=== PATIENT | female | born 1960 | race Caucasian/White ===

== ENCOUNTER 2020-10-28 15:38 | Inpatient (IN) | payer MEDICARE, OTHER ==
[~2020-10-28] VITALS: Ht 154.9 cm; Wt 58.1 kg
--- NOTE | 2020-10-28 15:50 | NUR ---
OCCUPATIONAL HYGIENIST NOTE- PT ADMITTED 5150 DTO DTS GD BROUGHT IN BY AMBULANCE FROM ANOTHER HOSPITAL. PT WAS AT FACILITY AND BEGAN STRIKING OUT AT ROOM MATE AND STAFF STATING "THEY'RE STEALING MY STUFF",. ON FACE TO FACE ASSESSMENT, SHE IS FOUND TO BE ALERT ORIENTED PERSON PLACE PURPOSE THOUGH HAS LOOSE ASSOCIATIONS AND PARANOIA. PT SKIN CHECK COMPLETED, AND MRSA SWAB DONE. PHOTOS TAKEN FOR CHART. PT IS ALLERGIC TO TORADOL. PMHX- BRAIN ANEURYSM AT AGE 18 LEFT HER WITH CONTRACTURES LEFT SIDE AND WEAKNESS. PT CAN FEED SELF AND MOVE AROUND BUT MOBILITY RESTRICTED. SHE HAS DEPRESSION , CHRONIC BACK PAIN AND A UTI. HER TOX SCREEN WAS + CANNIBIS. VS- BP- 125/89. HR- 70. RR- 18. T- 97.8 SATS AT 100% RA. DR MARTIN NOTIFIED OF ADMIT, PT SCREAMED AT HIM AND WAS NOT DIRECTABLE. RX ORDERED. ORDERS COMPLIED WITH. ORIENTED TO UNIT.
[2020-10-28 16:00] VITALS: BP 151/79
[2020-10-28] MEDS ORDERED: ONDA-97 PO (16:09)
[2020-10-28] MEDS ORDERED: ACET325T53 PO (16:09)
[2020-10-28] MEDS ORDERED: LEVO50TA8 PO (16:09)
[2020-10-28] MEDS ORDERED: GABA-532 PO (16:09)
[2020-10-28] MEDS ORDERED: LIDOCAINE PATCH TD (16:09)
[2020-10-28] MEDS ORDERED: CALC-952 PO (16:09)
[2020-10-28] MEDS ORDERED: NITR100C6 PO (16:09)
[2020-10-28] MEDS ORDERED: OXCA300T15 PO (16:09)
[2020-10-28] MEDS ORDERED: DICL20GE TP (16:09)
[2020-10-28] MEDS ORDERED: DULO60CA45 PO (16:09)
[2020-10-28] MEDS ORDERED: OMEP40CA13 PO (16:09)
[2020-10-28] MEDS ORDERED: ATOR10TA PO (16:09)
[2020-10-28] MEDS ORDERED: ACETAMINOPHEN 325 MG TABLET PO PRN (16:30)
[2020-10-28] MEDS ORDERED: MAG HYDROX/AL HYDROX/SIMETH 30 ML UDC PO PRN (16:30)
[2020-10-28] MEDS ORDERED: MAGNESIUM HYDROXIDE 30 ML UDC PO PRN (16:30)
[2020-10-28] MEDS ORDERED: BLOOD SUGAR DIAGNOSTIC 1 EACH STRIP IN ONE (16:30)
[2020-10-28] MEDS ORDERED: diphenhydrAMINE HCL 50 MG/ML VIAL IM STA (17:03)
[2020-10-28] MEDS ORDERED: LORAZEPAM INJ 2 MG/ML VIAL IM STA (17:03)
[2020-10-28] MEDS ORDERED: HALOPERIDOL LACTATE INJ 5 MG/ML VIAL IM STA (17:03)
--- NOTE | 2020-10-28 17:06 | NUR ---
RN NOTE- PT SCREAMING NOT DIRECTABLE OPPOSITIONAL TO ALL CARE. DR MARTIN ORDERED HALDOL 5 MG ATIVAN 2 MG AND BENADRYL 50 MG IM STAT. COMPLIED W ORDERS AND STAFF ASSIST.
[2020-10-28] MEDS ORDERED: OXCARBAZEPINE 300 MG PO SCH (17:30)
[2020-10-28] MEDS ORDERED: Medication Not On Formulary EA (Duloxetine Hcl (Cymbalta) 60 MG) PO SCH (17:30)
[2020-10-28] MEDS ORDERED: ZIPRASIDONE 20 MG CAPSULE PO SCH (17:30)
[2020-10-28 20:10] VITALS: BP 121/63
[2020-10-29] MEDS: LEVOTHYROXINE SODIUM 50 MCG TABLET PO SCH (06:28)
--- NOTE | 2020-10-29 06:45 | NUR ---
GPS RN CLOSING NOTES: PATIENT IS CURRENTLY SLEEPING. SLEPT 9HRS THIS SHIFT. PATIENT WAS MED COMPLIANT THIS SHIFT. NO S/S OF DISTRESS. RESPIRATION EVEN AND UNLABORED WITH EQUAL RISE AND FALL OF THE CHEST, ON ROOM AIR. ALL PATIENT CARE NEEDS MET ANTICIPATED. BED IN LOWEST POSITION AND LOCKED WITH SIDE RAILS UP X2. WILL CONTINUE TO MONITOR FOR SAFETY, MOOD AND BEHAVIOR AND ENDORSE TO AM SHIFT.
--- NOTE | 2020-10-29 07:00 | NUR ---
RN OPENING NOTES RECEIVED PATIENT IN BED SLEEPING COMFORTABLY.EASY TO AROUSE. BREATHING AND RESPIRATION EVEN AND UNLABORED WITH EQUAL RISE AND FALL OF THE CHEST, STABLE ON ROOM AIR. NO S/S OF ANY ACUTE DISTRESS. BED IN LOWEST LOCKED POSITION, SIDE RAILS UP X2, CALL LIGHT AND TABLE WITHIN REACH. WILL. CONTINUE TO MONITOR Q15 MIN FOR SAFETY, MOOD AND BEHAVIOR.
[2020-10-29 07:32] LABS: ALBUMIN 3.5 g/dL (3.4-5.0); BILIRUBIN,TOTAL 0.2 mg/dL (0.2-1.0); CALCIUM, SERUM 10.1 mg/dL (8.5-10.1); CREATININE 1.1 mg/dL (0.6-1.3); POTASSIUM 4.4 mmol/L (3.5-5.1); TOTAL PROTEIN, SERUM 6.9 g/dL (6.4-8.2)
[2020-10-29 07:38] LABS: CHOLESTEROL 162 mg/dL (<200); HDL CHOLESTEROL 58 mg/dL (40-60); LDL 80 mg/dL (0-99); TRIGLYCERIDES 136 mg/dL (30-150)
[2020-10-29 08:00] VITALS: BP 97/54
[2020-10-29] MEDS: PANTOPRAZOLE 40 MG TABLET.DR PO SCH (08:53)
[2020-10-29] MEDS: CALCIUM CARB 600MG /VIT D 1 EACH TABLET PO SCH (08:53)
[2020-10-29] MEDS: LIDOCAINE 5% (PATCH) 1 EA PATCH TP SCH (08:55)
[2020-10-29] MEDS ORDERED: GABAPENTIN 100 MG CAPSULE PO SCH (09:00)
[2020-10-29] MEDS ORDERED: DICLOFENAC TOPICAL 100 GM GEL..GM. TP SCH (09:00)
--- NOTE | 2020-10-29 09:50 | NUR ---
VOLTAREN NON-ADMINISTERED DUE TO IT NOT BEING AVAILABLE PER PHARMACY. RYLEY, PHARMACIST REQUESTED TO HAVE MD, SUBSTITUTE MED. DR FERNANDEZ, LULA MADE AWARE. WILL CONTINUE WITH PLAN OF CARE
[2020-10-29] MEDS: NITROFURANTOIN/NITROFURAN MONOHYDRATE 100 MG CAPSULE PO SCH ×2 (09:54→16:43)
[2020-10-29] MEDS: clonazePAM 0.5 MG TABLET PO PRN ×2 (11:03→21:58)
--- NOTE | 2020-10-29 11:11 | NUR ---
PT IS HAVING ANXIETY, VS BP 156/92, HR 81, RR 18, T 98.0, SPO2 95%. KLONOPIN 0.5MG PO Q4H PRN FOR ANXIETY ADMINISTERED AT THIS TIME PER ORDER. WILL CONTINUE TO MONITOR
--- NOTE | 2020-10-29 12:14 | NUR ---
MARIIA CHANGED TO ESTEPHANIA TODD BY DR FERNANDEZ, DNP AT THIS TIME. RECEIVED ORDERS TO STOP VOLTAREN, ORDERS READ BACK AND CARRIED OUT. WILL CONTINUE WITH PLAN OF CARE
[2020-10-29] MEDS ORDERED: METHYL SALICYLATE/MENTHOL 28GM 28 GM TUBE TP PRN (12:30)
[2020-10-29] MEDS: DULOXETINE HCL 30 MG CAPSULE.DR PO SCH (15:47)
[2020-10-29] MEDS: ZIPRASIDONE 20 MG CAPSULE PO SCH ×2 (15:47→16:42)
[2020-10-29 16:00] VITALS: BP 123/84
[2020-10-29] MEDS: OXCARBAZEPINE 150 MG TABLET PO SCH (16:42)
--- NOTE | 2020-10-29 18:34 | NUR ---
RN CLOSING NOTES PT AWAKE IN CHAIR IN HALLWAY AT THIS TIME. PT REMAINED STABLE THROUGHOUT SHIFT. ALL CARE, NEEDS, MEDICATION AND TREATMENT ADMINISTERED ANTICIPATED PER ORDER. PT DENIES SI/HI, VISUAL OR AUDITORY HALLUCINATION. PT KEPT CLEAN AND DRY. SAFETY PRECAUTIONS IN PLACE AND MAINTAINED AT ALL TIMES. BED IN LOWEST LOCKED POSITION, HOB ELEVATED, SIDE RAILS UPX2, CALL LIGHT AND TABLE WITHIN REACH. WILL ENDORSE TO TOP FRAME MAKER NURSE FOR RADHA
[2020-10-29 20:02] VITALS: BP 115/67
[2020-10-29 20:31] VITALS: BP 115/67
--- NOTE | 2020-10-29 21:58 | NUR ---
RN NOTE: ANXIETY PATIENT NOTED TO BE RESTLESS, ANXIOUS, AGITATED, LOUD. PRN KLONOPIN 0.5 MG 1 TAB PO ADMINISTERED. WILL CONTINUE TO MONITOR FOR ANY RADHA.
[2020-10-29] MEDS: ATORVASTATIN 10 MG TABLET PO SCH (22:01)
[2020-10-29] MEDS: ACETAMINOPHEN 325 MG TABLET PO PRN (22:42)
--- NOTE | 2020-10-29 22:46 | NUR ---
RN NOTE: PAIN PATIENT IS C/O BACK PAIN 08/31, REQUESTED TO GET PAIN MEDICINE. PRN TYLENOL 650 MG PO ADMINISTERED. WILL CONTINUE TO MONITOR.
[2020-10-30] MEDS: Z GUARD REMEDY 4 OZ OINT TP PRN (03:37)
[2020-10-30] MEDS: LEVOTHYROXINE SODIUM 50 MCG TABLET PO SCH (06:23)
[2020-10-30 06:37] LABS: BASOPHILS # (AUTO) 0.1 /CMM (0.0-0.2); BASOPHILS % (AUTO) 1.5 % (0.0-2.0); EOSINOPHILS % (AUTO) 5.7 % (0.0-6.0); HEMATOCRIT 41 % (33-45); HEMOGLOBIN 13.6 g/dL (11.5-14.8); LYMPHOCYTES # (AUTO) 3.1 /CMM (0.8-4.8); LYMPHOCYTES % (AUTO) 38.2 % (20.0-44.0); MEAN CORPUSCULAR HGB CONC 34 g/dl (31.0-36.0); MEAN CORPUSCULAR VOLUME 91 fL (82-100); MONOCYTES # (AUTO) 0.5 /CMM (0.1-1.30); MONOCYTES % (AUTO) 6.2 % (2.0-12.0); NEUTROPHILS # (AUTO) 3.9 /CMM (1.8-8.9); NEUTROPHILS % (AUTO) 48.4 % (43.0-81.0); PLATELET COUNT (AUTO) 447 /CMM (150-450); RED BLOOD CELL COUNT(AUTO) 4.48 MIL/uL (4.0-5.2)
[2020-10-30 07:11] LABS: CALCIUM, SERUM 9.8 mg/dL (8.5-10.1); MAGNESIUM 2.1 mg/dL (1.8-2.4); PHOSPHORUS 4.4 mg/dL (2.5-4.9); POTASSIUM 4.5 mmol/L (3.5-5.1)
[2020-10-30 08:00] VITALS: BP 106/62
[2020-10-30] MEDS: ZIPRASIDONE 20 MG CAPSULE PO SCH ×2 (08:55→16:24)
[2020-10-30] MEDS: DULOXETINE HCL 30 MG CAPSULE.DR PO SCH (08:55)
[2020-10-30] MEDS: LIDOCAINE 5% (PATCH) 1 EA PATCH TP SCH (08:55)
[2020-10-30] MEDS: PANTOPRAZOLE 40 MG TABLET.DR PO SCH (08:55)
[2020-10-30] MEDS: CALCIUM CARB 600MG /VIT D 1 EACH TABLET PO SCH (08:55)
[2020-10-30] MEDS: OXCARBAZEPINE 150 MG TABLET PO SCH ×2 (08:55→16:24)
[2020-10-30] MEDS: NITROFURANTOIN/NITROFURAN MONOHYDRATE 100 MG CAPSULE PO SCH ×2 (08:56→16:24)
[2020-10-30] MEDS: Z GUARD REMEDY 2 OZ OINT TP SCH (08:57)
--- NOTE | 2020-10-30 12:07 | NUR ---
GPS RN NOTE: DIET CN ORDERED TO CHANGED 2GM NA DIET TO MECHANICAL SOFT DIET. ORDER CARRIED OUT.
[2020-10-30] MEDS: clonazePAM 0.5 MG TABLET PO PRN (12:55)
--- NOTE | 2020-10-30 12:56 | NUR ---
GPS RN NOTE: ANXIETY PATIENT NOTED TO BE ANXIOUS, AGITATED, LOUD. KLONOPIN 0.5 MG 1 TAB PO PRN ADMINISTERED. WILL CONTINUE TO MONITOR THROUGHOUT THE SHIFT.
[2020-10-30 16:03] VITALS: BP 118/65
[2020-10-30 20:05] VITALS: BP 110/68
[2020-10-30 21:08] VITALS: BP 110/68
[2020-10-30] MEDS: ATORVASTATIN 10 MG TABLET PO SCH (21:27)
[2020-10-31] MEDS: Z GUARD REMEDY 4 OZ OINT TP PRN (03:06)
[2020-10-31] MEDS: LEVOTHYROXINE SODIUM 50 MCG TABLET PO SCH (06:24)
[2020-10-31] MEDS: PANTOPRAZOLE 40 MG TABLET.DR PO SCH (07:30)
[2020-10-31 08:00] VITALS: BP 121/68
[2020-10-31] MEDS: NITROFURANTOIN/NITROFURAN MONOHYDRATE 100 MG CAPSULE PO SCH ×2 (08:16→16:32)
[2020-10-31] MEDS: OXCARBAZEPINE 150 MG TABLET PO SCH ×2 (08:24→16:32)
[2020-10-31] MEDS: ZIPRASIDONE 20 MG CAPSULE PO SCH ×2 (08:24→16:32)
[2020-10-31] MEDS: LIDOCAINE 5% (PATCH) 1 EA PATCH TP SCH (08:24)
[2020-10-31] MEDS: CALCIUM CARB 600MG /VIT D 1 EACH TABLET PO SCH (08:24)
[2020-10-31] MEDS: DULOXETINE HCL 30 MG CAPSULE.DR PO SCH (08:24)
[2020-10-31] MEDS: Z GUARD REMEDY 2 OZ OINT TP SCH (08:25)
[2020-10-31] MEDS ORDERED: OLANZAPINE 10 MG VIAL IM STA (09:25)
[2020-10-31] MEDS ORDERED: LORAZEPAM INJ 2 MG/ML VIAL IM STA (09:25)
--- NOTE | 2020-10-31 09:46 | NUR ---
RN NOTE: EMERGENCY INJECTION PT THRASHING IN BED. ATTEMPTING TO HIT STAFF. VERBALLY THREATENING STAFF. MAKING SUICIDAL STATEMENT. ORDER FOR ZYPREXA 5MG AND ATIVAN 1 MG. IM ADMINISTERED IN LEFT GLUTEUS. PT SUZAN WELL.WILL CONT TO MONITOR PT FOR SAFETY, BEHAVIOR AND EFFECTIVENES OF IM INJECTION
--- NOTE | 2020-10-31 10:41 | NUR ---
WOUND CARE CONSULT: PT NOT SEEN YET FOR SKIN ASSESSMENT DUE TO PT RECEIVED IM INJECTION. WILL SEE PT PT CONDITION PERMITS.
--- NOTE | 2020-10-31 14:03 | NUR ---
Point of Contact: SW called Tristin ([phone]), pts friend, who was able to provide some information on the pt but stated that he has not seen her in years and was a friend in college that kept in touch with her. Pts friend provided the SW with the pts brother's phone number.
--- NOTE | 2020-10-31 14:04 | NUR ---
Family Contact: SW called the pts brother, Prem ([phone]), and was unable to make contact so the SW left a voicemail message.
--- NOTE | 2020-10-31 14:05 | NUR ---
UR Note: SW received a call from the pts UR continuous pillowcase cutter, Jayla ([phone]), who stated that she wanted an update on the pts case. SW provided a full clinical and the continuous pillowcase cutter stated that she was going to take the information to her team and will continue to authorize at this time.
--- NOTE | 2020-10-31 16:42 | NUR ---
Initial Discharge Plan: Pt currently resides at an assisted living located at [address] [place] [address]; ([phone]). Per pt she would like to return. JAJA will work with the pt and the MD regarding appropriate discharge planning. SW will form a safe and proper discharge.
[2020-10-31 19:46] VITALS: BP 126/60
[2020-10-31 20:00] VITALS: BP 126/60
[2020-10-31] MEDS: ATORVASTATIN 10 MG TABLET PO SCH (21:21)
--- NOTE | 2020-11-01 02:37 | NUR ---
RN NOTE PATIENT IS ASLEEP COMFORTABLY AT THIS TIME, NO BEHAVIOR EPISODE NOTED.
[2020-11-01] MEDS: LEVOTHYROXINE SODIUM 50 MCG TABLET PO SCH (06:21)
[2020-11-01 08:00] VITALS: BP 141/71
[2020-11-01] MEDS: DULOXETINE HCL 30 MG CAPSULE.DR PO SCH (08:19)
[2020-11-01] MEDS: CALCIUM CARB 600MG /VIT D 1 EACH TABLET PO SCH (08:19)
[2020-11-01] MEDS: PANTOPRAZOLE 40 MG TABLET.DR PO SCH (08:19)
[2020-11-01] MEDS: ZIPRASIDONE 20 MG CAPSULE PO SCH ×2 (08:19→17:37)
[2020-11-01] MEDS: NITROFURANTOIN/NITROFURAN MONOHYDRATE 100 MG CAPSULE PO SCH ×2 (08:20→17:37)
[2020-11-01] MEDS: LIDOCAINE 5% (PATCH) 1 EA PATCH TP SCH (08:21)
[2020-11-01] MEDS: Z GUARD REMEDY 2 OZ OINT TP SCH (08:21)
[2020-11-01] MEDS: OXCARBAZEPINE 150 MG TABLET PO SCH ×2 (08:23→17:37)
--- NOTE | 2020-11-01 09:03 | NUR ---
WOUND CARE CONSULT: PT PRESENTS WITH DRY SCRATCHES AND HEALED AREA TO LEFT THIGH, PRESENT ON ADMISSION. RECOMMENDATIONS MADE FOR SKIN PROTECTION. DISCUSSED WITH NURSING STAFF. MD IN AGREEMENT WITH PLAN OF CARE.
[2020-11-01] MEDS ORDERED: OLANZAPINE 10 MG VIAL IM STA (09:56)
[2020-11-01] MEDS ORDERED: LORAZEPAM INJ 2 MG/ML VIAL IM STA (09:56)
--- NOTE | 2020-11-01 10:18 | NUR ---
RN NOTE: EMERGENCY INJECTION PT POSTURING TOWARD STAFF. DELUSIONAL. ATTEMPTING TO KICK STAFF. YELLING AND SCREAMING OUT OF CONTROL. BEHAVIOR POSING DANGER TO SELF AND DANGER TO OTHERS. COMBATIVE AND STRIKING OUT AT OTHERS. EMERGENCY IM ZYPREXA 5MG AND ATIVAN 1MG ADMINISTERED TO RIGHT GLUTEUS. PT TOLERATED WELL. WILL CONTINUE TO MONITOR PT FOR SAFETY AND BEHAVIOR WELL EFFECTIVENESS OF EMERGENCY IM.
--- NOTE | 2020-11-01 12:52 | NUR ---
Individual Intervention: SW met with the pt at bedside per request of the pt and discussed the pts plan. Pt appeared to be verbally aggressive and presented with an irritated affect. Pts speech was slurred and slow as well. Pt stated that she wanted to be discharged from this hospital because she "is restorationism and need a tv in the room to be restorationism." Pt stated that she wanted to be discharged to [facility] and that she needs to go there and not be here because it is affecting her ability to be restorationism. Pts thoughts appear to be disorganized and nonsensical.
--- NOTE | 2020-11-01 14:20 | NUR ---
Facility Contact: JAJA contacted [facility] ([address], [place], [place]; [phone]) to verify if the patient can return back to the facility upon discharge. JAJA spoke to Sheet Rock Hanger, Pramod who stated that the pt can return back to the facility.
[2020-11-01 16:00] VITALS: BP 140/71
[2020-11-01] MEDS: clonazePAM 0.5 MG TABLET PO PRN (17:37)
--- NOTE | 2020-11-01 17:38 | NUR ---
RN NOTE: ANXIETY AND AGITATION PT SCREAMING AND YELLING. UNABLE TO BE REDIRECTED. MEDICATED WITH CLONAZEPAN 0.5 MG PO PRN
[2020-11-01 20:00] VITALS: BP 116/65
--- NOTE | 2020-11-01 20:00 | NUR ---
IN BED ASLEEP WILL OPEN EYES WHEN NAME LOUDLY SPOKEN. MOMENTAIRLY WILL LOOK AT ME THEN CLOSE HER EYES. STAYED IN HER BED THIS 12 HOURS. UP TO THE BATHROOM X1.
[2020-11-01] MEDS: ATORVASTATIN 10 MG TABLET PO SCH (21:54)
[2020-11-01] MEDS: TEMAZEPAM 15 MG CAPSULE PO PRN (21:54)
[2020-11-02] MEDS: LEVOTHYROXINE SODIUM 50 MCG TABLET PO SCH (05:59)
[2020-11-02 08:00] VITALS: BP 136/82
[2020-11-02] MEDS: PANTOPRAZOLE 40 MG TABLET.DR PO SCH (08:16)
[2020-11-02] MEDS: ZIPRASIDONE 20 MG CAPSULE PO SCH ×2 (08:46→17:19)
[2020-11-02] MEDS: NITROFURANTOIN/NITROFURAN MONOHYDRATE 100 MG CAPSULE PO SCH ×2 (08:46→17:19)
[2020-11-02] MEDS: CALCIUM CARB 600MG /VIT D 1 EACH TABLET PO SCH (08:46)
[2020-11-02] MEDS: OXCARBAZEPINE 150 MG TABLET PO SCH ×2 (08:46→17:19)
[2020-11-02] MEDS: DULOXETINE HCL 30 MG CAPSULE.DR PO SCH (08:47)
[2020-11-02] MEDS: LIDOCAINE 5% (PATCH) 1 EA PATCH TP SCH (08:50)
[2020-11-02] MEDS: Z GUARD REMEDY 2 OZ OINT TP SCH (08:50)
[2020-11-02 16:00] VITALS: BP 108/60
[2020-11-02] MEDS: ATORVASTATIN 10 MG TABLET PO SCH (21:22)
[2020-11-02 21:27] VITALS: BP 135/75
--- NOTE | 2020-11-02 21:27 | NUR ---
GPS/AIRCRAFT SALES REPRESENTATIVE NOTES: PT. REFUSED HS MEDS. OFFERED 3X. EXPLAINED RISK AND BENEFITS. PT. STILL REFUSED.
[2020-11-03] MEDS: LEVOTHYROXINE SODIUM 50 MCG TABLET PO SCH (06:07)
[2020-11-03 08:00] VITALS: BP 131/76
[2020-11-03] MEDS: OXCARBAZEPINE 150 MG TABLET PO SCH ×2 (08:33→16:35)
[2020-11-03] MEDS: DULOXETINE HCL 30 MG CAPSULE.DR PO SCH (08:33)
[2020-11-03] MEDS: ZIPRASIDONE 20 MG CAPSULE PO SCH ×2 (08:33→16:35)
[2020-11-03] MEDS: CALCIUM CARB 600MG /VIT D 1 EACH TABLET PO SCH (08:33)
[2020-11-03] MEDS: PANTOPRAZOLE 40 MG TABLET.DR PO SCH (08:33)
[2020-11-03] MEDS: LIDOCAINE 5% (PATCH) 1 EA PATCH TP SCH (08:35)
[2020-11-03] MEDS: Z GUARD REMEDY 2 OZ OINT TP SCH (08:38)
[2020-11-03 16:00] VITALS: BP 146/84
--- NOTE | 2020-11-03 19:30 | NUR ---
RN NOTES: RECEIVED PATIENT IN BED, AWAKE, TALKS A LOT WITH SLURRED SPEECH. PATIENT IS CALM. NO S/S OF DISTRESS NOTED.
[2020-11-03 20:00] VITALS: BP 138/70
[2020-11-03] MEDS: ATORVASTATIN 10 MG TABLET PO SCH (21:01)
[2020-11-03 23:39] VITALS: BP 138/70
[2020-11-04] MEDS: LEVOTHYROXINE SODIUM 50 MCG TABLET PO SCH (06:32)
[2020-11-04 08:00] VITALS: BP 132/70
[2020-11-04] MEDS: OXCARBAZEPINE 150 MG TABLET PO SCH ×2 (08:17→16:25)
[2020-11-04] MEDS: ZIPRASIDONE 20 MG CAPSULE PO SCH ×2 (08:17→16:25)
[2020-11-04] MEDS: CALCIUM CARB 600MG /VIT D 1 EACH TABLET PO SCH (08:17)
[2020-11-04] MEDS: DULOXETINE HCL 30 MG CAPSULE.DR PO SCH (08:17)
[2020-11-04] MEDS: PANTOPRAZOLE 40 MG TABLET.DR PO SCH (08:17)
[2020-11-04] MEDS: LIDOCAINE 5% (PATCH) 1 EA PATCH TP SCH (08:18)
[2020-11-04] MEDS: Z GUARD REMEDY 2 OZ OINT TP SCH (08:27)
[2020-11-04 16:00] VITALS: BP 129/93
[2020-11-04 20:27] VITALS: BP 164/94
[2020-11-04 20:44] VITALS: BP 136/71
[2020-11-04 20:48] VITALS: BP 136/71
[2020-11-04] MEDS: ATORVASTATIN 10 MG TABLET PO SCH (21:15)
[2020-11-04] MEDS: ACETAMINOPHEN 325 MG TABLET PO PRN (21:36)
--- NOTE | 2020-11-04 21:38 | NUR ---
RN NOTE: PAIN PATIENT IS C/O BACK PAIN 08/31, REQUESTED TO GET PAIN MEDICINE. PRN TYLENOL 650 MG PO ADMINISTERED. WILL CONTINUE TO MONITOR.
--- NOTE | 2020-11-05 04:23 | NUR ---
RN NOTE PATIENT HAS BEEN SLEEPING WELL, NO BEHAVIOR EPISODES NOTED AT THIS TIME.
[2020-11-05] MEDS: LEVOTHYROXINE SODIUM 50 MCG TABLET PO SCH (06:29)
[2020-11-05] MEDS: PANTOPRAZOLE 40 MG TABLET.DR PO SCH (07:01)
[2020-11-05 08:00] VITALS: BP 140/82
--- NOTE | 2020-11-05 08:30 | NUR ---
RECEIVED PT. IN AM ALERT AND ORIENTED X2.QUIET AND KEEPS TO SELF.
[2020-11-05] MEDS: ZIPRASIDONE 20 MG CAPSULE PO SCH ×2 (08:56→17:01)
[2020-11-05] MEDS: DULOXETINE HCL 30 MG CAPSULE.DR PO SCH (08:56)
[2020-11-05] MEDS: OXCARBAZEPINE 150 MG TABLET PO SCH ×2 (08:56→17:02)
[2020-11-05] MEDS: CALCIUM CARB 600MG /VIT D 1 EACH TABLET PO SCH (08:56)
[2020-11-05] MEDS: LIDOCAINE 5% (PATCH) 1 EA PATCH TP SCH (08:57)
[2020-11-05] MEDS: Z GUARD REMEDY 2 OZ OINT TP SCH (08:58)
--- NOTE | 2020-11-05 10:30 | NUR ---
SHORTLY AFTER BREAKFAST VOMITED MODERATE AMT. UNDIGESTED FOOD.
[2020-11-05 16:00] VITALS: BP 145/85
[2020-11-05] MEDS: ONDANSETRON 4 MG TAB.RAPDIS PO PRN (18:25)
--- NOTE | 2020-11-05 18:29 | NUR ---
just given zofran odt for nausea.states she did have bolemia 40 yrs ago.
--- NOTE | 2020-11-05 20:40 | NUR ---
RN NOTE PATIENT NOTED WITH RIGHT SIDE TONGUE SMALL AMOUNT BLEEDING, PATIENT KEEPS TWISTING HER TONGUE BETWEEN HER TEETH & GOT A SMALL CUT ON HER TONGUE, OFFERED ICED WATER & PRESSURE APPLIED USING A WET WASH CLOTH & BLEEDING STOPPED. PATIENT ALSO HAS MULTIPLE ELEVATED SPOTS ON BACK OF HER TONGUE, PER PATIENT SHE HAS BEEN SEEN BY THE DOCTOR FOR THIS BEFORE. WILL CONTINUE TO MONITOR Addendum: 11/06/20 at 0157 by NIVIA FRIEND RN PATIENT REFUSED PICTURE OF HER TONGUE TO BE TAKEN DESPITE OF EXPLANATIONS.
[2020-11-05 20:52] VITALS: BP 150/72
[2020-11-05 20:58] VITALS: BP 150/72
[2020-11-05] MEDS: ATORVASTATIN 10 MG TABLET PO SCH (21:15)
[2020-11-05] MEDS: clonazePAM 0.5 MG TABLET PO PRN (21:20)
--- NOTE | 2020-11-05 21:23 | NUR ---
RN NOTE: ANXIETY PATIENT VERBALIZED FEELING ANXIOUS, RESTLESS & NOTED TO BE HYPERVERBAL, LABILE. PATIENT REQUESTED TO TAKE ANTIANXIETY. PRN KLONOPIN 0.5 MG PO ADMINISTERED ORDERED. WILL CONTINUE TO MONITOR.
[2020-11-06] MEDS: LEVOTHYROXINE SODIUM 50 MCG TABLET PO SCH (06:45)
[2020-11-06] MEDS: PANTOPRAZOLE 40 MG TABLET.DR PO SCH (06:59)
[2020-11-06 08:00] VITALS: BP 124/65
[2020-11-06] MEDS: LIDOCAINE 5% (PATCH) 1 EA PATCH TP SCH (08:06)
[2020-11-06] MEDS: CALCIUM CARB 600MG /VIT D 1 EACH TABLET PO SCH (08:07)
[2020-11-06] MEDS: OXCARBAZEPINE 150 MG TABLET PO SCH ×2 (08:07→16:15)
[2020-11-06] MEDS: ZIPRASIDONE 20 MG CAPSULE PO SCH ×2 (08:07→16:14)
[2020-11-06] MEDS: Z GUARD REMEDY 2 OZ OINT TP SCH (08:08)
[2020-11-06] MEDS: clonazePAM 0.5 MG TABLET PO PRN ×2 (09:58→16:14)
--- NOTE | 2020-11-06 10:29 | NUR ---
RNRocíoCO: PT REQUESTED FOR KLONOPIN BEC OF RESTLESSNESS.
--- NOTE | 2020-11-06 11:22 | NUR ---
RNRocíoCO: EKG WAS SEEN BY DR MILLAN.
[2020-11-06 16:00] VITALS: BP 134/89
--- NOTE | 2020-11-06 16:14 | NUR ---
RN-CO: KLONOPIN TAB 0.5 MG PO GIVEN FOR RESTLESSNESS.
[2020-11-06] MEDS: ONDANSETRON 4 MG TAB.RAPDIS PO PRN (16:15)
--- NOTE | 2020-11-06 16:15 | NUR ---
RN-CO: ZOFRAN GIVEN FOR C/O NAUSEA. NO VOMITING NOTED.
[2020-11-06 21:44] VITALS: BP 96/54
[2020-11-06] MEDS: ATORVASTATIN 10 MG TABLET PO SCH (22:05)
[2020-11-07] MEDS: LEVOTHYROXINE SODIUM 50 MCG TABLET PO SCH ×2 (06:10→09:07)
--- NOTE | 2020-11-07 06:37 | NUR ---
GPS RN CLOSING NOTES PATIENT IN BED, SCREAMING, ASKING FOR PACHECO. NO S/S OF DISTRESS. NO C/O PAIN.ALL SCHED MEDS GIVEN. SAFETY KEPT IN PLACE: BED IN LOWEST, LOCKED POSITION; BED ALARM IN PLACE. ALL NEEDS ATTENDED. WILL ENDORSE CARE TO MORNING SHIFT NURSE.
[2020-11-07 08:00] VITALS: BP 139/80
[2020-11-07] MEDS: PANTOPRAZOLE 40 MG TABLET.DR PO SCH (09:07)
[2020-11-07] MEDS: ZIPRASIDONE 20 MG CAPSULE PO SCH ×2 (09:07→17:09)
[2020-11-07] MEDS: OXCARBAZEPINE 150 MG TABLET PO SCH ×2 (09:07→17:09)
[2020-11-07] MEDS: LIDOCAINE 5% (PATCH) 1 EA PATCH TP SCH (09:08)
[2020-11-07] MEDS: Z GUARD REMEDY 2 OZ OINT TP SCH (09:08)
[2020-11-07] MEDS: CALCIUM CARB 600MG /VIT D 1 EACH TABLET PO SCH (09:12)
[2020-11-07] MEDS: clonazePAM 0.5 MG TABLET PO PRN (09:26)
--- NOTE | 2020-11-07 09:26 | NUR ---
rn notes administered Klonopin 0.5 mg po prn for anxiety per patient request bp 139/80, p-63. will monitoring.
[2020-11-07] MEDS ORDERED: OLANZAPINE 10 MG VIAL IM STA (09:59)
[2020-11-07] MEDS ORDERED: LORAZEPAM INJ 2 MG/ML VIAL IM STA (10:00)
--- NOTE | 2020-11-07 10:18 | NUR ---
RN NOTE: EMERGENCY INJECTION PT YELLING AND SCREAMING. UNABLE TO BE REDIRECTED. VERBALLY THREATENING ROOM MATE. "I'M GOING TO KILL YOU!". DR. MARTIN NOTIFIED AND ORDER FOR ZYPREXA 5MG AND ATIVAN 1MG IM PLACED. PT VOLUNTARILY TOOK INJECTION TO RIGHT GLUTEUS MUSCLE WITH NO HANDS PLACED ON PT. PT TOLERATED WELL. WILL CONT TO MONITOR PT FOR SAFETY, BEHAVIOR AND EFFECTIVENESS OF IM INJECTION.
[2020-11-07 16:00] VITALS: BP 150/89
[2020-11-07 19:35] VITALS: BP 130/64
[2020-11-07] MEDS: ATORVASTATIN 10 MG TABLET PO SCH (22:08)
[2020-11-08] MEDS: clonazePAM 0.5 MG TABLET PO PRN ×2 (05:49→16:39)
--- NOTE | 2020-11-08 05:50 | NUR ---
GPS RN NOTES: PATIENT REQUESTED MEDICATION FOR ANXIETY. KLONOPIN 0.5MG/1TAB GIVEN PO PRN ORDERED AT 0549. WILL CONTINUE TO MONITOR.
[2020-11-08] MEDS: PANTOPRAZOLE 40 MG TABLET.DR PO SCH (07:44)
[2020-11-08 08:00] VITALS: BP 126/72
[2020-11-08] MEDS: CALCIUM CARB 600MG /VIT D 1 EACH TABLET PO SCH (08:20)
[2020-11-08] MEDS: LIDOCAINE 5% (PATCH) 1 EA PATCH TP SCH (08:20)
[2020-11-08] MEDS: ZIPRASIDONE 20 MG CAPSULE PO SCH ×2 (08:20→16:39)
[2020-11-08] MEDS: OXCARBAZEPINE 150 MG TABLET PO SCH ×3 (08:20→16:39)
[2020-11-08] MEDS: Z GUARD REMEDY 2 OZ OINT TP SCH (08:22)
[2020-11-08] MEDS ORDERED: OLANZAPINE 10 MG VIAL IM STA (10:09)
[2020-11-08] MEDS ORDERED: LORAZEPAM INJ 2 MG/ML VIAL IM STA (10:10)
--- NOTE | 2020-11-08 10:35 | NUR ---
RN NOTE: EMERGENCY INJECTION PT YELLING AND SCREAMING. POSTURING AND VERBALLY THREATENING STAFF AND OTHER PATIENTS. TELEPHONE CALL TO DR. MARTIN. ORDER FOR ZYPREXA 5MG AND ATIVAN 1MG IM. PT VOLUNTARILY ACCEPTED IM IN LEFT GLUTEUS WITHOUT COMPLICATION. PT TOLERATED WELL. WILL CONT TO MONITOR PT FOR SAFETY, BEHAVIOR AND EFFECTIVENESS OF IM MEDICATION. DR. MARTIN TO ADJUST ROUTINE MEDICATIONS.
[2020-11-08 16:00] VITALS: BP 139/77
--- NOTE | 2020-11-08 16:48 | NUR ---
RN NOTE: ANXIETY PT YELLING AND SCREAMING. MEDICATED WITH KLONOPIN PRN
[2020-11-08 20:26] VITALS: BP 97/56
[2020-11-08] MEDS: ATORVASTATIN 10 MG TABLET PO SCH (22:00)
--- NOTE | 2020-11-08 22:05 | NUR ---
GPS RN NOTES: PATIENT REFUSED 2200 MEDICATION, LIPITOR 10MG/1TAB PO. WILL CONTINUE TO MONITOR.
--- NOTE | 2020-11-09 06:41 | NUR ---
GPS RN CLOSING NOTES: PATIENT IS LAYING ON BED, AWAKE, A/O X2. PATIENT SLEPT 7HRS SHIFT. NO S/S OF DISTRESS. RESPIRATION EVEN AND UNLABORED WITH EQUAL RISE AND FALL OF THE CHEST ON ROOM AIR. ALL PATIENT CARE NEEDS HAVE BEEN MET ANTICIPATED. BED IN LOWEST POSITION AND LOCKED WITH SIDE RAILS UP X2. WILL CONTINUE TO MONITOR FOR SAFETY, MOOD AND BEHAVIOR AND ENDORSE TO AM SHIFT.
[2020-11-09] MEDS: LEVOTHYROXINE SODIUM 50 MCG TABLET PO SCH (07:02)
[2020-11-09 08:00] VITALS: BP 123/80
[2020-11-09] MEDS: PANTOPRAZOLE 40 MG TABLET.DR PO SCH (08:03)
[2020-11-09] MEDS: LIDOCAINE 5% (PATCH) 1 EA PATCH TP SCH (09:01)
[2020-11-09] MEDS: CALCIUM CARB 600MG /VIT D 1 EACH TABLET PO SCH (09:01)
[2020-11-09] MEDS: OXCARBAZEPINE 150 MG TABLET PO SCH ×3 (09:01→17:03)
[2020-11-09] MEDS: ZIPRASIDONE 20 MG CAPSULE PO SCH ×2 (09:06→17:03)
[2020-11-09] MEDS: clonazePAM 0.5 MG TABLET PO PRN (09:06)
--- NOTE | 2020-11-09 09:06 | NUR ---
RN NOTE: ANXIETY PT YELLING AND SCREAMING. VERBALLY AGGRESSIVE AND ABUSIVE TO OTHER PATIENTS AND STAFF. RESPONDING TO INTERNAL STIMULI. SHAKING. UNABLE TO BE REDIRECTED. MEDICATED WITH KLONOPIN 0.5 MG PO PRN. WILL CONT TO MONITOR PT FOR SAFETY AND BEHAVIOR PER PROTOCOL
[2020-11-09] MEDS: Z GUARD REMEDY 2 OZ OINT TP SCH (09:23)
[2020-11-09 16:00] VITALS: BP 139/82
[2020-11-09 20:00] VITALS: BP 133/76
[2020-11-09] MEDS: TEMAZEPAM 15 MG CAPSULE PO PRN (21:10)
[2020-11-09] MEDS: ATORVASTATIN 10 MG TABLET PO SCH (21:10)
[2020-11-09] MEDS: ACETAMINOPHEN 325 MG TABLET PO PRN (23:42)
[2020-11-10 08:00] VITALS: BP_SYST 100; BP_SYST 90; BP_DIAS 40; BP_DIAS 60
[2020-11-10] MEDS: LEVOTHYROXINE SODIUM 50 MCG TABLET PO SCH (08:00)
[2020-11-10] MEDS: PANTOPRAZOLE 40 MG TABLET.DR PO SCH (08:00)
[2020-11-10] MEDS: ZIPRASIDONE 20 MG CAPSULE PO SCH ×2 (09:53→16:07)
[2020-11-10] MEDS: OXCARBAZEPINE 150 MG TABLET PO SCH ×3 (09:53→16:07)
[2020-11-10] MEDS: CALCIUM CARB 600MG /VIT D 1 EACH TABLET PO SCH (09:53)
[2020-11-10] MEDS: LIDOCAINE 5% (PATCH) 1 EA PATCH TP SCH (09:54)
[2020-11-10] MEDS: Z GUARD REMEDY 2 OZ OINT TP SCH (09:58)
--- NOTE | 2020-11-10 10:49 | NUR ---
Well Drill OperatorLining Layer: SW received a call from the pts pillowcase sewer, Jayla ([phone]), who stated that she just wanted an update on the pts behaviors and her discharge plan. SW stated that her medications were recently adjusted as she was still aggressive and receiving IMs. SW stated that she appears to be improving and may be discharged back to [facility] soon.
[2020-11-10 16:00] VITALS: BP 145/74
[2020-11-10 20:20] VITALS: BP 159/83
[2020-11-10 20:25] VITALS: BP 159/83
[2020-11-10] MEDS: ATORVASTATIN 10 MG TABLET PO SCH (21:10)
[2020-11-10] MEDS: clonazePAM 0.5 MG TABLET PO PRN (21:17)
--- NOTE | 2020-11-10 21:18 | NUR ---
RN NOTE: ANXIETY PATIENT VERBALIZED FEELING ANXIOUS, RESTLESS. PATIENT REQUESTED TO TAKE ANTIANXIETY. PRN KLONOPIN 0.5 MG PO ADMINISTERED ORDERED. WILL CONTINUE TO MONITOR.
[2020-11-10 21:30] VITALS: BP 145/79
[2020-11-10] MEDS: TEMAZEPAM 15 MG CAPSULE PO PRN (23:38)
--- NOTE | 2020-11-10 23:41 | NUR ---
RN NOTE: INSOMNIA PATIENT VERBALIZED THAT SHE IS UNABLE TO SLEEP, PATIENT REQUESTED TO TAKE SLEEPING MEDICINE. PRN RESTORIL 15 MG 1 CAP PO ADMINISTERED. WILL CONTINUE TO MONITOR.
[2020-11-11] MEDS: LEVOTHYROXINE SODIUM 50 MCG TABLET PO SCH (06:30)
[2020-11-11] MEDS: PANTOPRAZOLE 40 MG TABLET.DR PO SCH (06:46)
[2020-11-11 08:00] VITALS: BP 120/60
[2020-11-11] MEDS: ZIPRASIDONE 20 MG CAPSULE PO SCH ×2 (08:07→16:04)
[2020-11-11] MEDS: CALCIUM CARB 600MG /VIT D 1 EACH TABLET PO SCH (08:07)
[2020-11-11] MEDS: LIDOCAINE 5% (PATCH) 1 EA PATCH TP SCH (08:07)
[2020-11-11] MEDS: OXCARBAZEPINE 150 MG TABLET PO SCH ×3 (08:07→16:04)
[2020-11-11] MEDS: Z GUARD REMEDY 2 OZ OINT TP SCH (08:08)
[2020-11-11] MEDS: clonazePAM 0.5 MG TABLET PO PRN (08:52)
--- NOTE | 2020-11-11 08:52 | NUR ---
RN-NOTES NOTED PATIENT WITH CONTINUOS SCREAMING AND YELLING STATED" I WANT TO SIGN MYSELF OUT".REDIRECTED AND OFFERED ANTI ANXIETY AND AGREED. KLONOPIN 0.5MG P.O GIVEN PRN ORDER. WILL CONT. MONITORING FOR SAFETY AND BEHAVIOR.
--- NOTE | 2020-11-11 09:30 | NUR ---
RN-NOTES PATIENT PARTICIPATING IN THE GROUP,CALM,NO ACUTE DISTRESS NOTED.
--- NOTE | 2020-11-11 10:20 | NUR ---
Facility Contact: JAJA contacted [facility] ([address], [place], [place]; [phone]) and spoke to Pramod to inform him that the pt is going to be ready to be discharged soon. He stated that due to the reason that the pt was sent out from the facility they would need to reassess the pt. JAJA asked if that can be done today and Pramod stated that they can do it on Saturday instead. JAJA asked that he call back with the time that he is available on Saturday.
--- NOTE | 2020-11-11 11:37 | NUR ---
Individual Intervention: SW met with the pt at bedside and explained that the facility is going to assess her on Saturday and she stated that she was not going to stay that long and that she is going to sign herself out today.
[2020-11-11 16:00] VITALS: BP 149/81
[2020-11-11] MEDS: ONDANSETRON 4 MG TAB.RAPDIS PO PRN (17:24)
--- NOTE | 2020-11-11 17:27 | NUR ---
RN-NOTES PATIENT C/O NAUSEA AND VOMITED X1 . ZOFRAN 4MG P.O GIVEN PRN ORDER. WILL CONT. MONITORING .
[2020-11-11 20:06] VITALS: BP 137/71
[2020-11-11 20:15] VITALS: BP 137/71
[2020-11-11] MEDS: ATORVASTATIN 10 MG TABLET PO SCH (21:33)
[2020-11-12] MEDS: Z GUARD REMEDY 4 OZ OINT TP PRN (03:28)
--- NOTE | 2020-11-12 05:46 | NUR ---
RN NOTE PATIENT SLEPT WELL AT NIGHT. NO C/O NAUSEA, VOMITING OR ANY PAIN VERBALIZED. WILL ENDORSE TO AM RN FOR CONTINUITY OF CARE.
[2020-11-12] MEDS: LEVOTHYROXINE SODIUM 50 MCG TABLET PO SCH (06:07)
[2020-11-12] MEDS: PANTOPRAZOLE 40 MG TABLET.DR PO SCH (06:48)
[2020-11-12 08:00] VITALS: BP 152/83
[2020-11-12] MEDS: Z GUARD REMEDY 2 OZ OINT TP SCH (09:47)
[2020-11-12] MEDS: OXCARBAZEPINE 150 MG TABLET PO SCH ×3 (09:47→18:16)
[2020-11-12] MEDS: ZIPRASIDONE 20 MG CAPSULE PO SCH ×2 (09:48→18:15)
[2020-11-12] MEDS: CALCIUM CARB 600MG /VIT D 1 EACH TABLET PO SCH (09:48)
[2020-11-12] MEDS: clonazePAM 0.5 MG TABLET PO PRN (09:48)
[2020-11-12] MEDS: LIDOCAINE 5% (PATCH) 1 EA PATCH TP SCH (09:48)
--- NOTE | 2020-11-12 09:48 | NUR ---
GIVEN KLONOPIN 0.5 MG PO FOR ANXIETY.
--- NOTE | 2020-11-12 15:30 | NUR ---
RN IN TO RM. AND NOTED PT. JUST WOKE UP ,REORIENTED .SKIN WARM AND DRY.
[2020-11-12 16:00] VITALS: BP 102/55
[2020-11-12] MEDS ORDERED: DOCUSATE SODIUM 100 MG CAPSULE PO SCH (17:00)
--- NOTE | 2020-11-12 17:37 | NUR ---
RN-CO: NOTIFIED DR MARTIN THAT PT'S 14 DAY HOLD IS EXPIRING TODAY.
[2020-11-12 20:15] VITALS: BP 141/70
[2020-11-12 20:20] VITALS: BP 141/70
[2020-11-12] MEDS: ATORVASTATIN 10 MG TABLET PO SCH (21:43)
[2020-11-12] MEDS: TEMAZEPAM 15 MG CAPSULE PO PRN (22:10)
[2020-11-13] MEDS: LEVOTHYROXINE SODIUM 50 MCG TABLET PO SCH (06:12)
[2020-11-13] MEDS: PANTOPRAZOLE 40 MG TABLET.DR PO SCH (06:51)
[2020-11-13 08:00] VITALS: BP 114/61
[2020-11-13] MEDS: CALCIUM CARB 600MG /VIT D 1 EACH TABLET PO SCH (09:03)
[2020-11-13] MEDS: OXCARBAZEPINE 150 MG TABLET PO SCH ×3 (09:03→17:34)
[2020-11-13] MEDS: ZIPRASIDONE 20 MG CAPSULE PO SCH ×2 (09:03→17:34)
[2020-11-13] MEDS: Z GUARD REMEDY 2 OZ OINT TP SCH (09:04)
[2020-11-13] MEDS: LIDOCAINE 5% (PATCH) 1 EA PATCH TP SCH (09:25)
[2020-11-13] MEDS: clonazePAM 0.5 MG TABLET PO PRN ×2 (11:43→17:34)
[2020-11-13 16:00] VITALS: BP 130/81
[2020-11-13 20:00] VITALS: BP 103/58
[2020-11-13] MEDS: ATORVASTATIN 10 MG TABLET PO SCH (21:21)
[2020-11-13] MEDS: TEMAZEPAM 15 MG CAPSULE PO PRN (21:21)
--- NOTE | 2020-11-13 21:23 | NUR ---
Pt c/o insomnia. Least restrictive measures ineffective. Restoril 15 mg po prn given as ordered. Will continue to monitor.
--- NOTE | 2020-11-13 22:21 | NUR ---
Post 1 hr Restoril effective. Pt asleep in bed easy to arouse. Will continue to monitor. Frequent visual check done for safety.
[2020-11-14] MEDS: LEVOTHYROXINE SODIUM 50 MCG TABLET PO SCH (06:08)
[2020-11-14] MEDS: PANTOPRAZOLE 40 MG TABLET.DR PO SCH (07:45)
[2020-11-14 08:00] VITALS: BP 134/64
[2020-11-14] MEDS: Z GUARD REMEDY 2 OZ OINT TP SCH (08:26)
[2020-11-14] MEDS: CALCIUM CARB 600MG /VIT D 1 EACH TABLET PO SCH (08:26)
[2020-11-14] MEDS: OXCARBAZEPINE 150 MG TABLET PO SCH ×3 (08:26→16:26)
[2020-11-14] MEDS: LIDOCAINE 5% (PATCH) 1 EA PATCH TP SCH (08:26)
[2020-11-14] MEDS: ZIPRASIDONE 20 MG CAPSULE PO SCH ×2 (08:26→16:26)
--- NOTE | 2020-11-14 15:55 | NUR ---
Facility Contact: JAJA contacted [facility] ([address], [place], [place]; [phone]) and spoke to Pramod who stated that he was going to call the team and figure out why the assessment did not happen today. He stated that he would call the SW back.
[2020-11-14 16:00] VITALS: BP 112/79
[2020-11-14] MEDS: clonazePAM 0.5 MG TABLET PO PRN (16:26)
--- NOTE | 2020-11-14 16:26 | NUR ---
RN NOTE: ANXIETY PT C/O INCREASING ANXIETY. REQUESTING PRN MEDICATION. MEDICATED WITH KLONOPIN 0.5MG PO PRN. WILL CONT TO MONITOR PT FOR SAFETY, BEHAVIOR AND PRN EFFECTIVENESS.
--- NOTE | 2020-11-14 19:30 | NUR ---
RN NOTES PATIENT IN BED AWAKE, NOT IN ANY APPARENT DISTRESS. A/O X 2. BREATHING EVEN AND UNLABORED. WILL MONITOR PATIENT CLOSELY.
[2020-11-14 20:00] VITALS: BP 117/71
[2020-11-14] MEDS: ATORVASTATIN 10 MG TABLET PO SCH (21:19)
[2020-11-15] MEDS: PANTOPRAZOLE 40 MG TABLET.DR PO SCH (07:45)
[2020-11-15] MEDS: LEVOTHYROXINE SODIUM 50 MCG TABLET PO SCH (07:45)
[2020-11-15 08:00] VITALS: BP 135/69
[2020-11-15] MEDS: ZIPRASIDONE 20 MG CAPSULE PO SCH ×2 (08:47→16:58)
[2020-11-15] MEDS: Z GUARD REMEDY 2 OZ OINT TP SCH (08:48)
[2020-11-15] MEDS: CALCIUM CARB 600MG /VIT D 1 EACH TABLET PO SCH (08:48)
[2020-11-15] MEDS: OXCARBAZEPINE 150 MG TABLET PO SCH ×3 (08:48→16:58)
[2020-11-15] MEDS: LIDOCAINE 5% (PATCH) 1 EA PATCH TP SCH (08:48)
[2020-11-15] MEDS: clonazePAM 0.5 MG TABLET PO PRN (10:35)
--- NOTE | 2020-11-15 10:35 | NUR ---
RN NOTE: ANXIETY PT CRYING AND YELLING. STATES A WOMAN IN THE NURSE'S STATION IS FROM [place] AND IS MAKING HER HOMESICK. STATES SHE SPEAKS "FLUENT NICARAGUAN". ADMINISTERED KLONOPIN 0.5 MG PO PRN.
--- NOTE | 2020-11-15 12:20 | NUR ---
Facility Contact: SW contacted [facility] ([address], [place], [place]; [phone]) and spoke to Pramod who stated that the team is not conducting in person assessments and so they will accept the pt back tomorrow.
--- NOTE | 2020-11-15 19:30 | NUR ---
GPS RN NOTE, RECEIVED PATIENT AWAKE AND IN BED, NO S/S OR COMPLAINTS OF PAIN AT THIS TIME. PATIENT IS DISPLAYING NO S/S OF APPARENT DISTRESS AT THIS TIME. PATIENT BREATHING IS UNLABORED WITH EQUAL RISE AND FALL OF THE CHEST. PATIENT IS ALERT AND ORIENTED X 2 ON ROOM AIR WITH A SPO2 99%. PATIENT IS COMPLIANT WITH MEDICATIONS, MAKES NEEDS KNOWN, ANXIOUS, HYPERVERBAL, AND NEEDS REDIRECTION. PATIENT DENIES SUICIDAL AND HOMICIDAL IDEATIONS AT THIS TIME. PATIENT ASSISTED WITH TURNING AND REPOSITIONING Q2HR AND PRN FOR COMFORT AND CIRCULATION. PATIENT HAS NO NEEDS AT THIS TIME. PATIENT EDUCATED ON THE USE OF THE CALL [place]. PATIENT BED SIDE RAILS UP X 2 FOR SAFETY. PATIENT BED IS LOCKED, LOW, WITH BED ALARM ON. WILL CONTINUE TO MONITOR THIS PATIENT Q15 MINUTES WITH THE HELP OF STAFF TO MAINTAIN SAFETY.
[2020-11-15 20:00] VITALS: BP 120/65
[2020-11-15] MEDS: ATORVASTATIN 10 MG TABLET PO SCH (21:27)
[2020-11-16] MEDS: TEMAZEPAM 15 MG CAPSULE PO PRN (01:34)
--- NOTE | 2020-11-16 01:34 | NUR ---
GPS RN NOTE, PATIENT HAS A COMPLAINT OF NOT BEING ABLE TO SLEEP AND IS REQUESTING RESTORIL AT THIS TIME. PATIENT VITAL SINS ARE STABLE. GAVE RESTORIL 15 MG PO HS PRN ORDERED. WILL REASSESS FOR INSOMNIA AND I WILL CONTINUE TO MONITOR THIS PATIENT.
[2020-11-16] MEDS: PANTOPRAZOLE 40 MG TABLET.DR PO SCH (07:39)
[2020-11-16] MEDS: LEVOTHYROXINE SODIUM 50 MCG TABLET PO SCH (07:40)
[2020-11-16 08:00] VITALS: BP 140/79
[2020-11-16] MEDS: LIDOCAINE 5% (PATCH) 1 EA PATCH TP SCH (08:30)
[2020-11-16] MEDS: ZIPRASIDONE 20 MG CAPSULE PO SCH (08:31)
[2020-11-16] MEDS: OXCARBAZEPINE 150 MG TABLET PO SCH ×2 (08:31→12:23)
[2020-11-16] MEDS: Z GUARD REMEDY 2 OZ OINT TP SCH (08:31)
[2020-11-16] MEDS: CALCIUM CARB 600MG /VIT D 1 EACH TABLET PO SCH (08:37)
--- NOTE | 2020-11-16 11:24 | NUR ---
Crucible PackerMds Nurse: SW received a call from the pts case management director, Jayla ([phone]), and the SW informed her that the pt was going to be discharged later today. Pts case management director asked for updated notes to be faxed to: [phone].
--- NOTE | 2020-11-16 11:33 | NUR ---
Discharge Note: Pt will be discharged to [facility] located at [address] [place] [address]; ([phone]). Pt will be transported via [facility] ([phone]) around 4pm. The insurance administrator, Pramod, approved the pt to return and the pt approves of this discharge plan. Upon discharge, pt appears to be in a euthymic mood and presents with a calm affect. Pt appears to be alert and oriented x4 (time, place, self and situation). Pt denies suicidal and homicidal ideation as well as auditory and visual hallucinations. Pt appears to be nonambulatory and has an unsteady gait. Pt appears to be well groomed and appropriately dressed. Pt will be under the care of psychiatrist, Dr. Mary Kerns, located at [address] [place] [address]; . Pt will be bond manager, Jagdeep Sher TABLE KEEPER, located [address] [place] [address]; . The multidisciplinary exit care form was done, printed, signed, and given to the patient.
[2020-11-16 16:00] VITALS: BP 139/73
--- NOTE | 2020-11-16 16:15 | NUR ---
SHIPFITTER NOTE: 60 YEAR OLD FEMALE DISCHARGED TO [facility] IN STABLE CONDITION. COMPLIANT WITH MEDICATIONS, COOPERATIVE WITH TREATMENT PLANS. PATIENT DENIES SI/HI AND INSTRUCTED TO GO TO THE CLOSEST ER IF DEVELOPING SI/HI. BEHAVIOR IMPROVED, PSYCHIATRIC TREATMENT PLANS MET, MEDICAL TREATMENT PLANS DEFERRED FOR CONTINUAL MONITORING. EDUCATED PT ABOUT AFTER CARE PLAN AND COPY PROVIDED. RETURNED PERSONAL BELONGINGS TO PATIENT. MEDICATIONS RECONCILED WITH DR. MARTIN AND DR. DUBON. PATIENT SIGNED DISCHARGE PAPERWORK. PT REFUSED WOUND PICTURES. PATIENT ID BAND REMOVED. PATIENT LEFT THE UNIT AT 1615 [facility] IN STABLE CONDITION
== END 2020-11-16 16:15 | DRG 885 ==
LOC: GPS 15:38
PROVIDERS: ADMIT Psychiatry & Neurology Psychiatry; ATTEND Registered Nurse
DX: F25.9 Schizoaffective disorder, unspecified (principal); N39.0 Urinary tract infection, site not specified; R45.851 Suicidal ideations; F32.9 Major depressive disorder, single episode, unspecified; F41.9 Anxiety disorder, unspecified; E78.5 Hyperlipidemia, unspecified; E03.9 Hypothyroidism, unspecified; I10 Essential (primary) hypertension; M19.90 Unspecified osteoarthritis, unspecified site; K80.20 Calculus of gallbladder without cholecystitis without obstruction; K21.9 Gastro-esophageal reflux disease without esophagitis; F29 Unspecified psychosis not due to a substance or known physiological condition; K59.00 Constipation, unspecified; G31.84 Mild cognitive impairment of uncertain or unknown etiology; K80.50 Calculus of bile duct without cholangitis or cholecystitis without obstruction; Z73.6 Limitation of activities due to disability
CPT/HCPCS: 36415; 80048-TC; 80053-TC; 80061-TC; 82962-TC; 83735-TC; 84100-TC; 85025-TC; 97112-TC; 97530-TC; J1200; J1630; J2060; J3490; Q0162